=== PATIENT | male | born 2000 | race Caucasian/White ===

== ENCOUNTER 2018-08-26 19:44 | Emergency (ER) | payer BC ==
[~2018-08-26] VITALS: Ht 182.9 cm; Wt 68.2 kg
[2018-08-26 19:47] VITALS: BP 122/64; TEMP 99
[2018-08-26 20:33] VITALS: PULSE 84
== END 2018-08-26 20:33 | disposition home or self-care (01) ==
LOC: COL.ER 19:44
DX: S93.401A Sprain of unspecified ligament of right ankle, initial encounter (principal); X50.1XXA Overexertion from prolonged static or awkward postures, initial encounter; Y93.67 Activity, basketball; Y92.219 Unspecified school as the place of occurrence of the external cause

== ENCOUNTER → 2020-03-11 | Outpatient (CLI) | payer BC | LOC: COL.PUL 07:51 | DX: J45.909 Unspecified asthma, uncomplicated (principal) ==